=== PATIENT | female | born 2000 | race Caucasian/White ===

== ENCOUNTER 2019-02-10 13:30 | Outpatient (RCR) | payer OTHER, SELFPAY ==
--- NOTE | 2019-01-16 14:39 | HP.PTEVAL_ITS ---
Patient's Visit Information JANNET PAREKH is a 18 year old F referred to Physical Therapy by NICOLASA WHEATLEY with a diagnosis of TMJ. Date of Evaluation: 01/13/19 Physical Therapist: Brodie Hoang PT, Cert MDT, OCS - Visit Plan Frequency: 2x /Week Duration: 4 Weeks Plan: TMJ EX'S ROCABADO EXERCISES,STRENGTHENING,POSTURAL EX'S,MANUAL THERAPY STM,MODALTIES - Subjective Findings: This 18 y/o female presents to physical therapy Left TMJ. Patient has pain since 11 y/o with braces and rubber bansd causing pain in jaw. Seen [facility] recommended PT ,and ant-immflammatory's. Patient has cervical pain suboccipital . Denies ELAM. Pateint has some clenching wth mild pain. Patient clenching throught day and uses mouth guard at night. Pateint has pain with jewing,opening and closing mouth . Patient has clicking popping. Patient has hypomoblity in joints could be a contributing factors . Eating harder food can cause pain example apple. No teeth lossening,broken but have to get a crown. No catching . Denies parathesia/tingling. Patient sleep can be affect by pain. Pateint TMJ affects eating chewing. SOCIAL: lives with parents. VOCATION: student - Pain Right Neck Pain Intensity (Out of 10): 5 Pain Intensity Range: 10 - Objective POSTURE: protruded head. PALAPTION:masters,pterygoids,mild sub occipital. NEURO: intact. MMT: 4/5 grossly. CERVICAL ROM: flexion /extension/lateral flexion/protrusion /rotation WNL. ROM: vertical opening 50mm,deviation right /left 20 mm,protrusion 5 mm - Special Tests Sharp Monica: Negative Vertebral Artery Test: Negative Alar Ligament Test: Negative Cervical Sitting: Protrusion - Mechanical Response: No effect Cervical Sitting: Protrusion - Symptoms During Testing: No effect Cervical Sitting: Protrusion - Symptoms After Testing: No effect Cervical Sitting: Retraction - Mechanical Response: No effect Cervical Sitting: Retraction - Symptoms During Testing: No effect Cervical Sitting: Retraction - Symptoms After Testing: No effect Cervical Sitting: Retraction-Extension - Mechanical Response: No effect Cerv Sitting: Retraction-Extension - Symptoms During Testing: No effect Cerv Sitting: Retraction-Extension - Symptoms After Testing: No effect Cervical Sitting: Sidebend Right - Mechanical Response: No effect Cervical Sitting: Sidebend Right - Symptoms During Testing: No effect Cervical Sitting: Sidebend Right - Symptoms After Testing: No effect Cervical Sitting: Sidebend Left - Mechanical Response: No effect Cervical Sitting: Sidebend Left - Symptoms During Testing: No effect Cervical Sitting: Sidebend Left - Symptoms After Testing: No effect Cervical Sitting: Rotation Right - Mechanical Response: No effect Cervical Sitting: Rotation Right - Symptoms During Testing: No effect Cervical Sitting: Rotation Right - Symptoms After Testing: No effect Cervical Sitting: Rotation Left - Mechanical Response: No effect Cervical Sitting: Rotation Left - Symptoms During Testing: No effect Cervical Sitting: Rotation Left - Symptoms After Testing: No effect Cervical Sitting: Flexion - Mechanical Response: No effect Cervical Sitting: Flexion - Symptoms During Testing: No effect Cervical Sitting: Flexion - Symptoms After Testing: No effect - Goals Goal 1:: Independant with HEP Goal Time Frame: 4-6 Weeks Goal 2:: Patient decrease TMJ pain by 70% or greater to improve ability to eat WNL. Goal Time Frame: 4-6 Weeks Goal 3:: Pateint be able to eat ,chew and minimize grinding without symptoms Goal Time Frame: 4-6 Weeks Goal 4:: Patient improve neck owestry by 3-5 points to improve QOL. Goal Time Frame: 4-6 Weeks - Rehabilitation Potential Physical Therapy Diagnosis: This pateint has right TMJ pain with sorensess with opening mouth,jewing food,yawinng with tenderness with palaption pterygoids,masster thus benifit from skilled PT Rehabilitation Potential: Good - Anticipated Interventions Patient/Client Instruction: Educate patient on: Condition, Plan of Care For the Purpose of:: To decrease pain, To increase ROM, To improve muscle performance and motor function, To improve performance and independence with ADL's, To improve ability of physical actions for home/community/work/leisure, To improve health of tissue, To increase flexibility/ROM Other: JEWING FOOD Therapeutic Exercise to Include: Strength training, Postural training, Passive ROM, Active ROM Comment: TMJ ,ROCABADO EX'S For the Purpose of:: To decrease pain, To increase ROM, To improve nutrient delivery to tissue, To increase oxygenation perfusion, To improve muscle performance and motor function, To improve ability of physical actions for home/community/work/leisure, To improve health of tissue, To decrease soft tissue restriction, To increase flexibility/ROM Other: EATING Manual Therapy Techniques to Include: Soft tissue mobilization Comment: TMJ,MASSTERS,PTERYGOIDS For the Purpose of:: To decrease pain, To increase ROM, To improve health of tissue, To decrease soft tissue restriction TENS: Yes IF ES: Yes Cryotherapy (ice pack, ice massage): Yes Thermo therapy (hot pack): Yes Ultrasound (thermal/non thermal): Yes For the Purpose of:: To decrease pain, To increase ROM, To improve nutrient del arjun to tissue, To increase oxygenation perfusion, To improve health of tissue, To decrease soft tissue restriction Thank you for the opportunity to evaluate your patient. For Medicare and Medicare HMO plans, please review the plan of care and approve it. It will need to be FAXED BACK to us at [phone] for Medicare purposes. For Medicare only, by signing this I certify the plan of care. Please let me know if there are questions or concerns regarding this plan of care. Physician Signature: Da te:
--- NOTE | 2019-02-10 14:22 | HP.PTDCSUM ---
HP - PT D/C Summary It has been my pleasure to treat JANNET PAREKH under orders from NICOLASA WHEATLEY for the diagnosis of TMJ for a total of 8 visit(s). Discharge Date: 02/10/19 Please see the following information for a summary of their discharge status. - Subjective Subjective: Patient reports doing well .. No pain .. Occassionally some soreness - Pain Right Neck Pain Intensity (Out of 10): 0 - Overall Improvement % Improvement: 85 - Objective Objective/Function: POSTURE: rounded shoulders head foward. PALPATION: mild tenderness pystergoids. CERVICAL: ROM WNL. MANIBLE ROM: WNL-VERTICAL OPENING - Goals Goal 1:: Independant with HEP Goal Progress: Goal Met Goal 2:: Patient decrease TMJ pain by 70% or greater to improve ability to eat WNL. Goal Progress: Goal Met Goal 3:: Pateint be able to eat ,chew and minimize grinding without symptoms Goal Progress: Goal Met Goal 4:: Patient improve neck owestry by 3-5 points to improve QOL. Goal Progress: Goal Met - Plan Plan: D/C - D/C Information Discharge Comments: HEP If there are questions or concerns regarding this patient's physical therapy, please feel free to call me at [phone]. Thank you for the referral of this patient. Sincerely, Brodie Hoang PT, Cert MDT, OCS
== END 2019-02-10 19:00 | disposition home or self-care (01) ==
LOC: PT 13:30
DX: M60.9 Myositis, unspecified (principal)
CPT/HCPCS: 97014; 97035; 97110; 97140; 97162; G0283

== ENCOUNTER → 2020-01-01 09:28 | Outpatient (CLI) | payer OTHER, SELFPAY ==
[2020-01-01 10:47] LABS: Hepatitis B Surface Antibody Non-Reactive; Hepatitis B Surface Antigen Non-Reactive (Nonreactive); Rubella IgG 19.1 IU/mL
[2020-01-02 15:27] LABS: Mumps Antibody,IgG < 9.0 AU/mL (Immune >10.9); V-Zoster IgG (Immunity) 333 index (Immune >165)
== END ==
PROVIDERS: PCP Pediatrics
DX: Z00.00 Encounter for general adult medical examination without abnormal findings (principal)
CPT/HCPCS: 36415; 86706; 86735; 86762; 86765; 86787; 87340

== ENCOUNTER → 2020-04-09 16:00 | Outpatient (CLI) | payer OTHER, SELFPAY ==
--- NOTE | 2020-04-09 16:02 | RAD_ITS ---
STUDY: X-RAY - PELVIS REASON FOR EXAM: Female, 20 years old. right and left hip pain TECHNIQUE: One view of the pelvis was obtained. COMPARISON: None. FINDINGS: There is a non-specific bowel gas pattern. Normal visualized soft tissue structures. Normal bilateral iliac wings, sacroiliac joints and visualized sacrum. Normal visualized bilateral superior and inferior pubic rami. Normal pubic symphysis. Normal ischial tuberosities. Normal visualized right femoral head. Normal right acetabulum. Normal right hip joint. Normal visualized left femoral head. Normal left acetabulum. Normal left hip joint. RAD/Pelvis 1 or 2 Views IMPRESSION: Normal x-ray examination of the pelvis. Electronically Signed: Baldomero Fermin MD at 18:07 EST , Service support ,
== END ==
PROVIDERS: PCP Pediatrics; Referring Provider Orthopaedic Surgery; Visit Provider Orthopaedic Surgery
DX: M25.551 Pain in right hip (principal); M25.552 Pain in left hip
CPT/HCPCS: 72170